=== PATIENT | female | born 1970 | race American Indian/Alaskan Native ===

== ENCOUNTER 2018-08-19 00:11 | Emergency (ER) | payer OTHER ==
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
[2018-08-19 07:32] VITALS: BP 174/94
[2018-08-19] MEDS ORDERED: IBUPROFEN PO ONE (09:05)
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
== END 2018-08-19 09:31 | disposition home or self-care (01) ==
LOC: ED 00:11
DX: S39.012A Strain of muscle, fascia and tendon of lower back, initial encounter (principal); F17.200 Nicotine dependence, unspecified, uncomplicated; Z98.890 Other specified postprocedural states; V49.59XA Passenger injured in collision with other motor vehicles in traffic accident, initial encounter; Y93.89 Activity, other specified; Y92.410 Unspecified street and highway as the place of occurrence of the external cause; Y99.8 Other external cause status
CPT/HCPCS: 72100